=== PATIENT | female | born 1990 | race African-American/Black ===

== ENCOUNTER 2022-10-23 00:47 | Emergency (ER) | payer OTHER ==
[~2022-10-23] VITALS: Ht 165.1 cm; Wt 82.9 kg
[2022-10-23 01:21] VITALS: BP 129/82
[2022-10-23 02:18] LABS: BASOPHILS % 0.6 % (0.0-2.0); EOSINOPHILS % 2.8 % (0.0-5.0); HEMATOCRIT. 32.7 % (36.0-48.0); HEMOGLOBIN. 11.2 g/dL (12.0-16.0); LYMPHOCYTES % 15.3 % (20.0-50.0); MEAN CORPUSCULAR HEMOGLOBIN 29.7 pg (28.0-32.0); MEAN CORPUSCULAR VOLUME 86.9 fL (81.0-99.0); MEAN PLATELET VOLUME 8.1 fl (7.4-10.4); NEUTROPHILS % 72.3 % (40.0-76.0); PLATELET 241 x1000/uL (130-400); RED BLOOD CELL COUNT 3.76 mill/uL (4.2-5.4); RED CELL DISTRIBUTION WIDTH 14.4 % (11.6-14.6)
[2022-10-23 02:26] LABS: CHLORIDE 107 mEq/L (98-107)
== END 2022-10-23 04:43 | disposition home or self-care (01) ==
LOC: ER 00:47
DX: O26.891 Other specified pregnancy related conditions, first trimester (principal); R07.89 Other chest pain; R06.02 Shortness of breath; O99.341 Other mental disorders complicating pregnancy, first trimester; Z3A.10 10 weeks gestation of pregnancy; Z98.890 Other specified postprocedural states
CPT/HCPCS: 36415; 80053; 83880; 84484; 84702; 85025; 93005; 99284